=== PATIENT | male | born 2000 | race Caucasian/White ===

== ENCOUNTER 2018-05-02 16:41 | Emergency (ER) | payer BC ==
--- NOTE | 2018-05-02 17:35 | UC ---
Throat Pain/Nasal Navneet HPI - HPI Summary HPI Summary: Patient presents to urgent care with a dry cough and sore throat progressive over 3 days. Patient denies fevers or chills. Patient has taken over-the- counter medications without improvement. Patient denies nausea vomiting. No rashes. Patient concerned he may have strep throat. Patient's medications reviewed this visit. Patient without difficulty swallowing or handling secretions. Patient denies sick contacts - History of Current Complaint Chief Complaint: UCGeneralIllness Stated Complaint: ST,COUGH Time Seen by Provider: 05/02/18 17:30 Hx Obtained From: Patient Onset/Duration: Gradual Onset Severity: Moderate Pain Intensity: 4 Pain Scale Used: 0-10 Numeric - Allergies/Home Medications Allergies/Adverse Reactions: Allergies Allergy/AdvReac Type Severity Reaction Status Date / Time No Known Allergies Allergy Verified 05/02/18 17:05 Home Medications: Home Medications Ibuprofen TAB* [Advil TAB*] 400 mg PO Q6H PRN 05/02/18 [History Confirmed ] Insulin Aspart [Novolog] 100 unit SC SEE INSTRUCTIONS 05/02/18 [History Confirmed 05/02/18] PMH/Surg Hx/FS Hx/Imm Hx Previously Healthy: Yes - Surgical History Surgical History: Yes Surgery Procedure, Year, and Place: ear tubes - Family History Known Family History: Positive: Non-Contributory - Social History Lives: With Family Alcohol Use: None Substance Use Type: None Smoking Status (MU): Never Smoked Tobacco Review of Systems All Other Systems Reviewed And Are Negative: Yes Constitutional: Positive: Fatigue ENT: Positive: Nasal Discharge, Sinus Congestion Respiratory: Positive: Cough Physical Exam - Summary Physical Exam Summary: Vital Signs Reviewed: Yes A+Ox3, no distress Eyes: Conjunctiva Clear, JUD. EOM intact and full ENT: Hearing grossly normal TM x 2 clear, sinus congestion, PND, mmoist, uvula midline, no exudate, + mild erythema Neck: Positive: Supple Respiratory: Positive: No respiratory distress, No accessory muscle use + CTA throughout no w/r Cardiovascular: RRR nl s1, s2 no m/r CBT <2 sec abd soft + BS nt/nd no guarding, no distension Musculoskeletal Exam: MORALES x 4 without difficulty Strength Intact, ROM Intact Neurological: Positive: Alert, + sensation throughout Psychological: Positive: Normal Response To Family Skin: Positive: no rash, no ecchymosis Triage Information Reviewed: Yes Vital Signs: Initial Vital Signs Temp 98.9 F 05/02/18 17:08 Pulse 79 05/02/18 17:08 Resp 16 05/02/18 17:08 BP 122/70 05/02/18 17:08 Pulse Ox 98 05/02/18 17:08 Throat Pain/Nasal Course/Dx - Course Course Of Treatment: Patient presents to urgent care with sinus congestion sore throat and cough progressive for 3 days per patient's concern he is strep throat. Patient's been using [id number] preparation with improvement. On exam vital signs are stable. Patient does have erythema and his oropharynx. Rapid strep is negative. Discussed with patient viral syndromes. Supportive care. Motrin Tylenol. Decongestant. Secretion precaution return precaution. Patient comfortable and agreement with plan. - Differential Dx/Diagnosis Provider Diagnosis: URI (upper respiratory infection) Discharge - Sign-Out/Discharge Documenting (check all that apply): Patient Departure All imaging exams completed and their final reports reviewed: No Studies - Discharge Plan Condition: Stable Disposition: HOME Patient Education Materials: Upper Respiratory Infection (ED) Referrals: Jairon Kyle MD [Primary Care Provider] - Additional Instructions: - Stay well hydrated. Drink plenty of non-alcoholic, non-caffinated beverages. -- Okay to gargle and spit warm salt water every 4 hours as needed for pain - Stay well hydrated - frequent sips of cold fluids will be soothing to your throat (popsicles, jello, ice cream, ice water). Avoid excess caffeine until your symptoms have resolved. - Alternate ibuprofen (Advil, Motrin) 600mg and Tylenol every 3 hours for pain or fever. Take with food. Do NOT take for more than 4-5 days. - These infections are spread by secretions - do NOT share eating or drinking utensils - clean items you share with other people such as cell phones, computer mouse, TV remote, computer tablets,etc. Once you start to feel better, change your toothbrush and your pillowcase. - get plenty of sleep - humidify the air in the room where you sleep - boil water, run a hot steam shower, vaporizer, cups of water by heat register - okay to take over the counter decongestant and cough medication - contact your doctor or return with questions or concerns - Billing Disposition and Condition Condition: STABLE Disposition: Home
== END 2018-05-02 18:21 | disposition home or self-care (01) ==
LOC: UCCORT 16:41
DX: J06.9 Acute upper respiratory infection, unspecified (principal)
CPT/HCPCS: 87651; 99201; G0463